=== PATIENT | male | born 1955 | race African-American/Black ===

== ENCOUNTER 2020-05-19 12:47 | Emergency (ER) | payer OTHER ==
[2020-05-19 13:02] VITALS: BP 130/88; PULSE 94
[2020-05-19] MEDS ORDERED: Ketorolac 60 MG/2 ML SDV IM ONE (13:47)
[2020-05-19] MEDS ORDERED: methylPREDNISolone Sodium Succinate 125 MG/2 ML SDV IM STA (13:47)
--- NOTE | 2020-05-19 13:55 | EDM.PDOC ---
ED HPI GENERAL MEDICAL PROBLEM - General Chief Complaint: General Stated Complaint: SCIATIC/LOWER BACK ISSUES Time Seen by Provider: 05/19/20 13:29 Source of Information: Reports: Patient History Limitations: Reports: No Limitations - History of Present Illness INITIAL COMMENTS - FREE TEXT/NARRATIVE: This patient is a 64 year old male that presents to the ER. Patient reports for 3 months having right lower back pain into buttock with some mild numbness. Denies injury, urinary/bowel incontinence, loss of function. Denies numbness/tingling around rectum to indicate saddle parathesia. Patient reports calling his PCP at [facility] but was instructed to come here to the ER for an MRI per patient. Duration: Other (3 months) Location: Reports: Back, Lower Extremity, Right Quality: Reports: Ache Severity: Mild Improves with: Reports: None Worsens with: Reports: None Associated Symptoms: Denies: Confusion, Chest Pain, Cough, cough w sputum, Diaphoresis, Fever/Chills, Headaches, Loss of Appetite, Malaise, Nausea/Vomiting, Rash, Seizure, Shortness of Breath, Syncope, Weakness Right Lower Back Pain Score (Numeric/FACES): 7 - Related Data Allergies Allergy/AdvReac Type Severity Reaction Status Date / Time No Known Allergies Allergy Verified 05/19/20 12:52 Home Meds: Home Meds Lisinopril 40 mg PO DAILY 01/12/16 [History] Cyclobenzaprine [Flexeril] 10 mg PO TID PRN #15 tab 05/19/20 [Rx] amLODIPine [Norvasc] 10 mg PO DAILY 05/19/20 [History] atorvaSTATin [Lipitor] 40 mg PO BEDTIME 05/19/20 [History] methylPREDNISolone [Medrol Dose Pack] 4 mg PO ASDIRECTED #1 dospk 05/19/20 [Rx] traMADol [Ultram] 50 mg PO Q6H PRN #20 tab 05/19/20 [Rx] Past Medical History HEENT History: Reports: Cataract, Epistaxis Cardiovascular History: Reports: Hypertension Respiratory History: Reports: Bronchitis, Recurrent Neurological History: Reports: Migraines - Past Surgical History Musculoskeletal Surgical History: Reports: Shoulder Surgery Social & Family History - Family History Family Medical History: Noncontributory - Tobacco Use Smoking Status *Q: Current Every Day Smoker Years of Tobacco use: 45 Packs/Tins Daily: 0.5 ED ROS GENERAL - Review of Systems Review Of Systems: See Below Constitutional: Reports: No Symptoms HEENT: Reports: No Symptoms Respiratory: Reports: No Symptoms Cardiovascular: Reports: No Symptoms Endocrine: Reports: No Symptoms GI/Abdominal: Reports: No Symptoms : Reports: No Symptoms. Denies: Incontinence Musculoskeletal: Reports: Back Pain (right lower into buttock) Skin: Reports: No Symptoms Neurological: Reports: Numbness (mild right buttock). Denies: Confusion, Dizziness, Headache, Seizure, Syncope, Tingling, Trouble Speaking, Difficulty Walking, Weakness, Gait Disturbance Psychiatric: Reports: No Symptoms Hematologic/Lymphatic: Reports: No Symptoms Immunologic: Reports: No Symptoms ED EXAM, GENERAL - Physical Exam Exam: See Below Exam Limited By: No Limitations General Appearance: Alert, WD/WN, No Apparent Distress Head: Atraumatic, Normocephalic Neck: Normal Inspection, Supple, Non-Tender, Full Range of Motion Respiratory/Chest: No Respiratory Distress, Lungs Clear, Normal Breath Sounds, No Accessory Muscle Use Cardiovascular: Normal Peripheral Pulses, Regular Rate, Rhythm, No Edema, No Gallop, No JVD, No Murmur, No Rub Peripheral Pulses: 2+: Radial (L), Radial (R), Posterior Tibial (L), Posterior Tibial (R), Dorsalis Pedis (L), Dorsalis Pedis (R) GI/Abdominal: Soft, Non-Tender Back Exam: Normal Inspection, Full Range of Motion, Paraspinal Tenderness (mld right lumbar region/buttock.). No: CVA Tenderness (L), CVA Tenderness (R), Decreased Range of Motion, Muscle Spasm, Vertebral Tenderness Extremities: Normal Inspection, Normal Range of Motion, Non-Tender, No Pedal Edema, Normal Capillary Refill Neurological: Alert, Oriented, Normal Cognition, Normal Gait, No Motor/Sensory Deficits Psychiatric: Normal Affect, Normal Mood Skin Exam: Warm, Dry, Intact, Normal Color, No Rash Course - Vital Signs Last Recorded V/S: Last Vital Signs Temp 98.3 F 05/19/20 12:56 Pulse 94 05/19/20 12:56 Resp 18 05/19/20 12:56 BP 130/88 05/19/20 12:56 Pulse Ox 94 L 05/19/20 12:56 - Orders/Labs/Meds Orders: Active Orders 24 hr Category Date Time Status Lumbar Spine 2 or 3V [CR] Stat Exams 05/19/20 13:06 Taken Meds: Medications Discontinued Medications Generic Name Dose Route Start Last Admin Trade Name Suni PRN Reason Stop Dose Admin Ketorolac Tromethamine 60 mg 05/19/20 13:47 05/19/20 13:55 Toradol IM 05/19/20 13:48 60 mg ONETIME ONE Administration Methylprednisolone Sodium Succinate 125 mg 05/19/20 13:47 05/19/20 13:58 Solu-Medrol IM 05/19/20 13:48 125 mg NOW STA Administration - Radiology Interpretation Free Text/Narrative:: Lumbar: no fracture Departure - Departure Time of Disposition: 13:48 Disposition: Home, Self-Care 01 Condition: Good Clinical Impression: Sciatica Qualifiers: Laterality: right Qualified Code(s): M54.31 - Sciatica, right side - Discharge Information *PRESCRIPTION DRUG MONITORING PROGRAM REVIEWED*: Not Applicable *COPY OF PRESCRIPTION DRUG MONITORING REPORT IN PATIENT BYRON: Not Applicable Prescriptions: Cyclobenzaprine [Flexeril] 10 mg PO TID PRN #15 tab PRN Reason: Spasms methylPREDNISolone [Medrol Dose Pack] 4 mg PO ASDIRECTED #1 dospk traMADol [Ultram] 50 mg PO Q6H PRN #20 tab PRN Reason: Pain Instructions: Sciatica, [id number] Forms: ED Department Discharge Additional Instructions: Followup with primary care provider Followup with primary care provider if pain continues for possible MRI or further evaluation Return to the ER for worsening of condition or any emergent concerns Ice or Heat to painful area Tylenol or Motrin for pain Medrol Dose Pack as directed #1 no refill Ultram 50mg 1-2 pills every 4-6 hours as needed for pain #20 no refill Sepsis Event Note (ED) - Evaluation Sepsis Screening Result: No Definite Risk - Focused Exam Vital Signs: Vital Signs Temp Pulse Resp BP Pulse Ox 05/19/20 12:56 98.3 F 94 18 130/88 94 L - Assessment/Plan Plan: PLEASE SEE RN NOTE FOR PFSH
== END 2020-05-19 14:05 | disposition home or self-care (01) ==
LOC: CC.ED 12:47
DX: M54.41 Lumbago with sciatica, right side (principal); I10 Essential (primary) hypertension; F17.210 Nicotine dependence, cigarettes, uncomplicated; Z79.899 Other long term (current) drug therapy
CPT/HCPCS: 72100; 96372; 99283; J1885; J2930

== ENCOUNTER 2020-08-19 17:36 | Emergency (ER) | payer OTHER ==
[2020-08-19 17:42] VITALS: BP 149/91; PULSE 91
[2020-08-19] MEDS ORDERED: Ketorolac 60 MG/2 ML SDV IM ONE (17:57)
[2020-08-19] MEDS ORDERED: Iopamidol 755 Mg/ML 100 ML Bottle IVPUSH ONE (18:28)
[2020-08-19 18:44] LABS: CHLORIDE,CL 105 mEq/L (98-106); SODIUM,NA 140 mEq/L (136-145)
--- NOTE | 2020-08-19 18:45 | EDM.PDOC ---
ED HPI GENERAL MEDICAL PROBLEM - General Chief Complaint: ENT Problem Stated Complaint: tooth ache Time Seen by Provider: 08/19/20 18:13 Source of Information: Reports: Patient History Limitations: Reports: No Limitations - History of Present Illness INITIAL COMMENTS - FREE TEXT/NARRATIVE: Karel is a 65 yo male who presents to the ED with complaints of a toothache. States for the last couple of weeks he has had some discomfort to the left lower tooth. States he did try to get into a dentist but they wanted $500 up front. Admits he also is regularly seen at the [facility] which he has reached out to as well. Denies any fevers. States today the pain has progressively gotten worse. States the pain starts in the inside of his left mouth and radiates down into his neck. States he also felt it up into his left eye area as well. Unable to chew anything on the left side. Left Tooth/Teeth Pain Score (Numeric/FACES): 10 - Related Data Allergies Allergy/AdvReac Type Severity Reaction Status Date / Time No Known Allergies Allergy Verified 08/19/20 17:44 Home Meds: Home Meds Lisinopril 40 mg PO DAILY 01/12/16 [History] amLODIPine [Norvasc] 10 mg PO DAILY 05/19/20 [History] atorvaSTATin [Lipitor] 40 mg PO DAILY 05/19/20 [History] Past Medical History HEENT History: Reports: Cataract, Epistaxis Cardiovascular History: Reports: Hypertension Respiratory History: Reports: Bronchitis, Recurrent Neurological History: Reports: Migraines - Past Surgical History Musculoskeletal Surgical History: Reports: Shoulder Surgery Social & Family History - Family History Family Medical History: No Pertinent Family History - Tobacco Use Tobacco Use Status *Q: Current Every Day Tobacco User Years of Tobacco use: 40 Packs/Tins Daily: 0.5 - Caffeine Use Caffeine Use: Reports: Coffee, Soda - Recreational Drug Use Recreational Drug Use: No ED ROS ENT - Review of Systems Review Of Systems: Comprehensive ROS is negative, except as noted in HPI. ED EXAM, ENT - Physical Exam Exam: See Below Exam Limited By: No Limitations General Appearance: Alert, No Apparent Distress Eye Exam: Bilateral Eye: Normal Inspection, PERRL Ears: Normal External Exam, Normal Canal, Hearing Grossly Normal, Normal TMs Nose: Normal Inspection, Normal Mucousa Mouth/Throat: Dental Abcess, Dental Pain, Dental Tenderness. No: Bleeding, Dental Trauma Head: Facial Swelling (left jaw line) Neck: Normal Inspection, Tender Lateral (left). No: Lymphadenopathy (L) Respiratory/Chest: No Respiratory Distress, Lungs Clear Cardiovascular: Regular Rate, Rhythm, No Murmur Neurological: Alert, Oriented, Normal Cognition, No Motor/Sensory Deficits Course - Vital Signs Last Recorded V/S: Last Vital Signs Temp 96.6 F L 08/19/20 17:39 Pulse 91 08/19/20 17:39 Resp 20 08/19/20 17:39 BP 149/91 H 08/19/20 17:39 Pulse Ox 97 08/19/20 17:39 - Orders/Labs/Meds Orders: Active Orders 24 hr Category Date Time Status Max Facial Sinus w Cont [CT] Stat Exams 08/19/20 18:23 Taken Labs: Laboratory Tests 08/19/20 08/19/20 Range/Units 18:35 18:35 WBC 6.6 (5.0-10.0) 10^3/uL RBC 4.94 (4.50-6.00) 10^6/uL Hgb 14.5 (14.0-18.0) g/dL Hct 44.2 (40.0-54.0) % MCV 89.5 (82.0-94.0) fL MCH 29.4 (27.0-32.0) pg MCHC 32.8 L (33.0-38.0) g/dL RDW Coeff of Sally 14.3 (11.0-15.0) % Plt Count 145 L (150-400) 10^3/uL Neut % (Auto) 66.0 (35-85) % Lymph % (Auto) 24.1 (10-55) % [place] % (Auto) 7.3 (0-16) % Eos % (Auto) 2.3 (0-5) % Baso % (Auto) 0.3 (0-3) % Neut # (Auto) 4.32 (1.80-7.00) 10^3/uL Lymph # (Auto) 1.58 (1.00-4.80) 10^3/uL [place] # (Auto) 0.48 (0.00-0.80) 10^3/uL Eos # (Auto) 0.15 (0.00-0.45) 10^3/uL Baso # (Auto) 0.02 10^3/uL Sodium 140 (136-145) mEq/L Potassium 3.7 (3.5-5.0) mEq/L Chloride 105 (98-106) mEq/L Carbon Dioxide 26 (21-32) mmol/L BUN 20 H (7-18) mg/dL Creatinine 1.4 H (0.7-1.3) mg/dL Est Cr Clr Drug Dosing 48.53 mL/min Estimated GFR (MDRD) > 60 (>=60) mL/min Glucose 145 H (75-99) mg/dL Calcium 9.4 (8.4-10.1) mg/dL Meds: Medications Discontinued Medications Generic Name Dose Route Start Last Admin Trade Name Freq PRN Reason Stop Dose Admin Iopamidol 100 ml 08/19/20 18:28 08/19/20 18:56 Isovue-370 (76%) IVPUSH 08/19/20 18:29 100 ml ONETIME ONE Administration Ketorolac Tromethamine 60 mg 08/19/20 17:57 08/19/20 18:03 Toradol IM 08/19/20 17:58 60 mg ONETIME ONE Administration - Radiology Interpretation Free Text/Narrative:: Dr. Mendez, radiologist, consulted. No soft tissue abscess noted. Did not extensive dental caries. CT Results Date: 08/19/20 CT Results Time: 19:18 Departure - Departure Time of Disposition: 19:21 Disposition: Home, Self-Care 01 Clinical Impression: Dental caries extending into dentin - Discharge Information Referrals: PCP,None [Primary Care Provider] - Forms: ED Department Discharge Additional Instructions: 1) Tylenol 1000mg every 6 hours as needed for pain 2) Toradol 10mg every 8 hours as needed, advise using only for break thru pain 3) Amoxicillin 875mg twice a day for 10 days 4) Discussed kidney function and getting IV contrast tonight. Recommend di scussing with Dr. Samantha Andrew about delaying CT of the chest tomorrow as may be ordered with IV contrast. 5) Advise pushing fluids to help flush the kidneys. 6) If any fevers, worsening of symptoms or any concerns, recommend reevaluation 7) Advise getting in to dentist for proper treatment. Sepsis Event Note (ED) - Evaluation Sepsis Screening Result: No Definite Risk - Focused Exam Vital Signs: Vital Signs Temp Pulse Resp BP Pulse Ox 08/19/20 17:39 96.6 F L 91 20 149/91 H 97 - Problem List & Annotations (1) Dental caries extending into dentin Status: Acute Current Visit: Yes - My Orders Last 24 Hours: My Active Orders 08/19/20 18:23 Max Facial Sinus w Cont [CT] Stat - Assessment/Plan Last 24 Hours: My Active Orders 08/19/20 18:23 Max Facial Sinus w Cont [CT] Stat Plan: CT of the face was negative for soft tissue abscess. Will discharge home on oral antibiotics. Toradol for break thru pain. [facility] in [facility] to [facility] of the chest to confirm Dr. Andrew would like to proceed since IV contrast was given today. Patient is advised to increase fluid intake.
[2020-08-19] MEDS ORDERED: Ketorolac 10 MG Tab ONE (19:15)
[2020-08-19] MEDS ORDERED: Amoxicillin/Clavulanate K 875-125 MG Tab ONE (19:15)
[2020-08-19] MEDS ORDERED: Take Home: Amoxicillin/Clavulanate K 875-125 MG Tab, 2 Tab Pack PO ONE (19:26)
[2020-08-19] MEDS ORDERED: Take Home: Ketorolac 10 MG Tab, 4 Tab Pack PO ONE (19:27)
== END 2020-08-19 20:05 | disposition home or self-care (01) ==
LOC: CC.ED 17:36
DX: K02.9 Dental caries, unspecified (principal); I10 Essential (primary) hypertension; F17.210 Nicotine dependence, cigarettes, uncomplicated; Z79.899 Other long term (current) drug therapy
CPT/HCPCS: 36415; 70487; 80048; 85025; 96372; 99283; 99284; A9270; J1885; Q9967

== ENCOUNTER 2020-10-04 19:04 | Emergency (ER) | payer OTHER ==
[2020-10-04 19:17] VITALS: PULSE 96
[2020-10-04 19:32] VITALS: BP 184/98
[2020-10-04] MEDS ORDERED: Clindamycin HCl 150 MG Cap ONE (19:36)
[2020-10-04] MEDS ORDERED: Acetaminophen/HYDROcodone 325-5 MG Tab ONE (19:36)
[2020-10-04] MEDS ORDERED: diphenhydrAMINE 12.5 MG/5 ML Liquid 5 ML UD Cup PO STA (19:45)
[2020-10-04] MEDS ORDERED: Lidocaine 2% Viscous Solution 15 ML Cup PO ONE (19:45)
[2020-10-04] MEDS ORDERED: Aluminum Hydroxide/Magnesium Hydroxide/Simethicone Susp 30 ML Cup PO ONE (19:45)
[2020-10-04] MEDS ORDERED: Take Home: Acetaminophen/HYDROcodone 325-5 MG, 2 Tab Pack PO ONE (19:47)
[2020-10-04] MEDS ORDERED: Take Home: Clindamycin HCl 150 MG Cap, 6 Cap Pack PO ONE ×2 (19:47→19:54)
[2020-10-04] MEDS ORDERED: Clindamycin HCl 150 MG Cap PO ONE (19:48)
--- NOTE | 2020-10-04 19:55 | EDM.PDOC ---
ED HPI GENERAL MEDICAL PROBLEM - General Chief Complaint: General Stated Complaint: toothache Time Seen by Provider: 10/04/20 19:30 Source of Information: Reports: Patient History Limitations: Reports: No Limitations - History of Present Illness INITIAL COMMENTS - FREE TEXT/NARRATIVE: This patient is a 65 year old male that presents to the ER. Patient reports having left lower dental pain for the past couple of months. He reports that he was seen here in August, prescribed PCN. He reports it improved, then came back about 1 1/2 weeks ago. He reports that he was seen at [facility], they gave PCN VK and Tylenol. He reports the pain is worse now. Patient reports having his tooth fixed is $500 and the dentist wants the infection gone prior to pulling tooth. Denies n, v, d, f, swelling, redness of face. Onset Date: 09/24/20 Duration: Getting Worse, Other (Been present for a couple of months, but worse the last 1 1/2 weeks. 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) (abx) Left Tooth/Teeth Pain Score (Numeric/FACES): 10 - Related Data Allergies Allergy/AdvReac Type Severity Reaction Status Date / Time No Known Allergies Allergy Verified 10/04/20 19:05 Home Meds: Home Meds Lisinopril 40 mg PO DAILY 01/12/16 [History] amLODIPine [Norvasc] 10 mg PO DAILY 05/19/20 [History] atorvaSTATin [Lipitor] 40 mg PO DAILY 05/19/20 [History] Acetaminophen [Mapap] 650 mg PO Q6H PRN 10/04/20 [History] Clindamycin HCl 300 mg PO TID 6 Days #18 capsule 10/04/20 [Rx] Penicillin V Potassium 500 mg PO QID 10/04/20 [History] Past Medical History HEENT History: Reports: Cataract, Epistaxis Cardiovascular History: Reports: Hypertension Respiratory History: Reports: Bronchitis, Recurrent Musculoskeletal History: Reports: Back Pain, Chronic Neurological History: Reports: Migraines - Past Surgical History Musculoskeletal Surgical History: Reports: Shoulder Surgery Social & Family History - Family History Family Medical History: No Pertinent Family History - Tobacco Use Tobacco Use Status *Q: Current Every Day Tobacco User Years of Tobacco use: 42 Packs/Tins Daily: 0.5 - Caffeine Use Caffeine Use: Reports: Coffee, Soda ED ROS GENERAL - Review of Systems Review Of Systems: See Below Constitutional: Reports: No Symptoms HEENT: Reports: Dental Pain Respiratory: Reports: No Symptoms Cardiovascular: Reports: No Symptoms Endocrine: Reports: No Symptoms GI/Abdominal: Reports: No Symptoms : Reports: No Symptoms Musculoskeletal: Reports: No Symptoms Skin: Reports: No Symptoms Neurological: Reports: No Symptoms Psychiatric: Reports: No Symptoms Hematologic/Lymphatic: Reports: No Symptoms Immunologic: Reports: No Symptoms ED EXAM, GENERAL - Physical Exam Exam: See Below Exam Limited By: No Limitations General Appearance: Alert, WD/WN, No Apparent Distress Eye Exam: Bilateral Eye: Normal Inspection, PERRL Ears: Normal External Exam, Normal Canal, Hearing Grossly Normal, Normal TMs Ear Exam: Bilateral Ear: Auricle Normal, Canal Normal, TM normal Nose: Normal Inspection, Normal Mucosa, No Blood Throat/Mouth: Normal Inspection, Normal Lips, Normal Gums, Normal Oropharynx, Normal Voice, No Airway Compromise, Other (no trismus. Poor dental decay throughout. #19 painful, tednerness, decayed. #13 also severe decay. No abscess felt. ) Head: Atraumatic, Normocephalic. No: Facial Swelling, Facial Tenderness, Sinus Tenderness Neck: Normal Inspection, Supple, Non-Tender, Full Range of Motion Respiratory/Chest: No Respiratory Distress, Lungs Clear, Normal Breath Sounds, No Accessory Muscle Use Cardiovascular: Normal Peripheral Pulses, Regular Rate, Rhythm, No Edema, No Gallop, No JVD, No Murmur, No Rub Peripheral Pulses: 2+: Radial (L), Radial (R) Extremities: Normal Inspection Neurological: Alert, Oriented Psychiatric: Normal Affect, Normal Mood Skin Exam: Warm, Dry, Intact, Normal Color, No Rash Lymphatic: No Adenopathy Course - Vital Signs Last Recorded V/S: Last Vital Signs Temp 98.6 F 10/04/20 19:04 Pulse 96 10/04/20 19:04 Resp 16 10/04/20 19:04 BP 184/98 H 10/04/20 19:31 Pulse Ox 99 10/04/20 19:04 - Orders/Labs/Meds Meds: Medications Discontinued Medications Generic Name Dose Route Start Last Admin Trade Name Freq PRN Reason Stop Dose Admin Hydrocodone Bitart/Acetaminophen 3 packet 10/04/20 19:47 Take Home: Acetaminophen/Hydrocod, 2 Tab Pack PO 10/04/20 19:48 ONETIME ONE Al Hydroxide/Mg Hydroxide 30 ml 10/04/20 19:45 Mag-Al Plus PO 10/04/20 19:46 ONETIME ONE Clindamycin HCl 3 packet 10/04/20 19:47 Take Home: Clindamycin Hcl 150 Mg, 6 Cap Pack PO 10/04/20 19:48 ONETIME ONE Clindamycin HCl 300 mg 10/04/20 19:48 Cleocin PO 10/04/20 19:49 ONETIME ONE Clindamycin HCl 2 packet 10/04/20 19:54 Take Home: Clindamycin Hcl 150 Mg, 6 Cap Pack PO 10/04/20 19:55 ONETIME ONE Diphenhydramine HCl 25 mg 10/04/20 19:45 Benadryl PO 10/04/20 19:46 NOW STA Lidocaine HCl 15 ml 10/04/20 19:45 Xylocaine 2% Viscous PO 10/04/20 19:46 ONETIME ONE Departure - Departure Time of Disposition: 19:52 Disposition: Home, Self-Care 01 Condition: Fair Clinical Impression: Poor dental hygiene, Dental caries extending into dentin - Discharge Information *PRESCRIPTION DRUG MONITORING PROGRAM REVIEWED*: Not Applicable *COPY OF PRESCRIPTION DRUG MONITORING REPORT IN PATIENT BYRON: Not Applicable Prescriptions: Clindamycin HCl 300 mg PO TID 6 Days #18 capsule Instructions: Dental Abscess, [id number] Referrals: PCP,None [Primary Care Provider] - Forms: ED Department Discharge Additional Instructions: Followup with a dentist to have tooth removed for fixed Followup with your primary care provider Return to the ER for worsening of condition or any emergent concerns Stop the PCN VK Stop the Tylenol Take Motrin as needed for pain over the counter with food Clindamycin 150mg 2 pills three times a day Tuesday: 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
== END 2020-10-04 20:20 | disposition home or self-care (01) ==
LOC: CC.ED 19:04
DX: K02.9 Dental caries, unspecified (principal); I10 Essential (primary) hypertension; F17.210 Nicotine dependence, cigarettes, uncomplicated; Z79.899 Other long term (current) drug therapy
CPT/HCPCS: 99282; 99283; A9270-GY

== ENCOUNTER → 2022-02-05 | Day surgery (SDC) | payer OTHER ==
[~2022-02-05] MED LIST: Flumazenil 0.1 MG/ML 10 ML MDV ONE; Ketamine 200 MG/20 ML MDV ONE; Lactated Ringers 1,000 ML IV SCH; Midazolam 1 MG/ML 2 ML SDV ONE; Propofol 200 MG/20 ML SDV ONE; fentaNYL 100 MCG/2 ML SDV ONE
[2022-02-05 14:42] VITALS: BP 128/81; PULSE 71
== END ==
LOC: CC.SDS 11:51
PROVIDERS: ATTEND Family Medicine
DX: Z12.11 Encounter for screening for malignant neoplasm of colon (principal); D12.3 Benign neoplasm of transverse colon; K57.30 Diverticulosis of large intestine without perforation or abscess without bleeding; I10 Essential (primary) hypertension; F17.210 Nicotine dependence, cigarettes, uncomplicated; G43.909 Migraine, unspecified, not intractable, without status migrainosus; M54.9 Dorsalgia, unspecified; E66.9 Obesity, unspecified; R30.0 Dysuria; Z88.5 Allergy status to narcotic agent; Z79.899 Other long term (current) drug therapy; Z68.38 Body mass index [BMI] 38.0-38.9, adult
CPT/HCPCS: 00812; J2250; J2704; J3010; J7120

== ENCOUNTER 2022-04-12 22:12 | Emergency (ER) | payer OTHER ==
[2022-04-12 22:15] VITALS: BP 141/75; PULSE 100
[2022-04-12] MEDS ORDERED: Tetracaine HCl/PF 0.5% 4 ML Bottle EYELF ONE (22:26)
[2022-04-12] MEDS ORDERED: Fluorescein 1 MG Ophth Strip EYELF ONE (23:17)
[2022-04-12] MEDS ORDERED: Distilled Water Ophth Irrig Soln 120 ML Bottle EYELF ONE (23:17)
== END 2022-04-12 23:05 | disposition home or self-care (01) ==
LOC: SUPCPDRO 22:12 → CC.ED 22:12
DX: H11.002 Unspecified pterygium of left eye (principal); I10 Essential (primary) hypertension; Z79.899 Other long term (current) drug therapy
CPT/HCPCS: 99282

== ENCOUNTER 2022-11-13 01:30 | Emergency (ER) | payer OTHER ==
[2022-11-13 01:35] VITALS: BP 144/88; PULSE 75
[2022-11-13] MEDS ORDERED: Alum Hydrox/Mag Hydrox/Simeth 30 ML, Lidocaine 2% 15 ML PO ONE ×2 (01:41)
[2022-11-13] MEDS ORDERED: Famotidine 20 MG Tab PO ONE (02:39)
== END 2022-11-13 03:00 | disposition home or self-care (01) ==
LOC: CC.ED 01:30
DX: K29.70 Gastritis, unspecified, without bleeding (principal); I10 Essential (primary) hypertension; F17.210 Nicotine dependence, cigarettes, uncomplicated; Z79.899 Other long term (current) drug therapy
CPT/HCPCS: 36415; 80053; 82150; 83690; 84484; 85025; 99283; 99284; A9270-GY

== ENCOUNTER 2023-12-30 10:15 | Emergency (ER) | payer OTHER ==
[2023-12-30 10:37] VITALS: BP 113/68; PULSE 72
[2023-12-30 10:43] LABS: BASOPHILS ABSOLUTE AUTO 0.01 10^3/uL (0.00-0.50); BASOPHILS PERCENT AUTO 0.2 % (0-1); EOSINOPHILS ABSOLUTE AUTO 0.17 10^3/uL (0.00-1.50); EOSINOPHILS PERCENT AUTO 4.2 % (0-6); HEMATOCRIT 41.2 % (42.0-52.0); HEMOGLOBIN 13.1 g/dL (14.0-18.0); IMMATURE GRAN ABSOLUTE AUTO 0.01 10^3/uL (0.00-0.49); IMMATURE GRAN PERCENT AUTO 0.2 % (0.0-4.9); LYMPHOCYTES PERCENT AUTO 17.2 % (24-44); MEAN CORPUSCULAR HEMOGLOBIN 28.7 pg (27.0-32.0); MEAN CORPUSCULAR HGB CONC 31.8 g/dL (32.0-36.0); MEAN CORPUSCULAR VOLUME 90.4 fL (83.0-97.0); MONOCYTES ABSOLUTE AUTO 0.55 10^3/uL (0.00-1.50); MONOCYTES PERCENT AUTO 13.5 % (0-10); NEUTROPHILS ABSOLUTE AUTO 2.62 x10^3/uL (1.80-8.00); NEUTROPHILS PERCENT AUTO 64.7 % (41-71); PLATELET COUNT,PLT 123 10^3/uL (150-400); RED BLOOD CELL COUNT 4.56 x10^6/uL (4.50-6.00); WHITE BLOOD CELL COUNT,WBC 4.1 10^3/uL (4.0-11.0)
[2023-12-30 10:56] LABS: ALBUMIN 3.2 g/dL (3.4-5.0); BILIRUBIN TOTAL 0.4 mg/dL (0.0-1.0); C-REACTIVE PROTEIN 3.21 mg/dL (<=0.50); CALCIUM 8.8 mg/dL (8.4-10.1); CREATININE 1.1 mg/dL (0.7-1.3); EST CRCL DRUG DOSING (CG) 57.19 mL/min; POTASSIUM,K 4.6 mEq/L (3.5-5.0); PROTEIN TOTAL,TP 7.3 g/dL (6.4-8.2)
[2023-12-30] MEDS: Albuterol/Ipratropium 3.0-0.5 MG/3 ML Neb Soln NEB ONE (10:58)
[2023-12-30 11:19] LABS: CORONAVIRUS COVID-19 NAA POSITIVE (NEGATIVE); INFLUENZA A NAA NEGATIVE (NEGATIVE); INFLUENZA B NAA NEGATIVE (NEGATIVE); RESPIRATORY SYNCYTIAL VIR NAA NEGATIVE (NEGATIVE)
== END 2023-12-30 11:32 | disposition home or self-care (01) ==
LOC: CC.ED 10:15
DX: U07.1 COVID-19 (principal); J44.1 Chronic obstructive pulmonary disease with (acute) exacerbation; I10 Essential (primary) hypertension; F17.210 Nicotine dependence, cigarettes, uncomplicated; Z79.899 Other long term (current) drug therapy
CPT/HCPCS: 0241U; 36415; 71046; 80053; 85025; 86140; 94640; 99284; J7620-GY

== ENCOUNTER 2024-11-09 18:04 | Emergency (ER) | payer OTHER ==
[2024-11-09] MEDS ORDERED: Sodium Chloride 0.9% 10 ML Syringe FLUSH PRN (18:13)
[2024-11-09] MEDS: Nitroglycerin 0.4 MG Tab.SL SL PRN (18:21)
[2024-11-09 18:31] LABS: BASOPHILS ABSOLUTE AUTO 0.04 10^3/uL (0.00-0.50); BASOPHILS PERCENT AUTO 0.4 % (0-1); EOSINOPHILS ABSOLUTE AUTO 0.13 10^3/uL (0.00-1.50); EOSINOPHILS PERCENT AUTO 1.2 % (0-6); HEMATOCRIT 44.1 % (42.0-52.0); HEMOGLOBIN 14.2 g/dL (14.0-18.0); IMMATURE GRAN ABSOLUTE AUTO 0.02 10^3/uL (0.00-0.49); IMMATURE GRAN PERCENT AUTO 0.2 % (0.0-4.9); LYMPHOCYTES ABSOLUTE AUTO 1.55 10^3/uL (0.60-5.00); LYMPHOCYTES PERCENT AUTO 14.6 % (24-44); MEAN CORPUSCULAR HEMOGLOBIN 29.1 pg (27.0-32.0); MEAN CORPUSCULAR HGB CONC 32.2 g/dL (32.0-36.0); MEAN CORPUSCULAR VOLUME 90.4 fL (83.0-97.0); MONOCYTES ABSOLUTE AUTO 0.71 10^3/uL (0.00-1.50); MONOCYTES PERCENT AUTO 6.7 % (0-10); NEUTROPHILS ABSOLUTE AUTO 8.16 x10^3/uL (1.80-8.00); NEUTROPHILS PERCENT AUTO 76.9 % (41-71); PLATELET COUNT,PLT 162 10^3/uL (150-400); RED BLOOD CELL COUNT 4.88 x10^6/uL (4.50-6.00); WHITE BLOOD CELL COUNT,WBC 10.6 10^3/uL (4.0-11.0)
[2024-11-09] MEDS: Alum Hydrox/Mag Hydrox/Simeth 30 ML, Lidocaine 2% 15 ML PO ONE (18:32)
[2024-11-09 18:47] LABS: ALANINE AMINOTRANSFERASE,ALT 27 U/L (12-78); ALBUMIN 3.7 g/dL (3.4-5.0); ALKALINE PHOSPHATASE 69 U/L (46-116); ASPARTATE AMNIOTRANSFERASE,AST 15 U/L (15-37); BILIRUBIN TOTAL 0.5 mg/dL (0.0-1.0); BLOOD UREA NITROGEN,BUN 22 mg/dL (7-18); CALCIUM 9.8 mg/dL (8.4-10.1); CARBON DIOXIDE,CO2 26 mmol/L (21-32); CHLORIDE,CL 107 mEq/L (98-106); CREATININE 1.5 mg/dL (0.7-1.3); GLUCOSE RANDOM 159 mg/dL (75-99); MAGNESIUM 1.8 mg/dL (1.8-2.4); POTASSIUM,K 4.1 mEq/L (3.5-5.0); PROTEIN TOTAL,TP 7.3 g/dL (6.4-8.2); SODIUM,NA 142 mEq/L (136-145)
[2024-11-09 18:48] LABS: C-REACTIVE PROTEIN < 0.50 mg/dL (<=0.50); ESTIMATED GFR 50 mL/min (>=60)
[2024-11-09 18:58] LABS: D-DIMER QUANTITATIVE 0.71 (0.00-0.50); INR 1.08 (0.92-1.18); PROTHROMBIN TIME 11.3 SEC (9.3-11.3); PTT,PARTIAL THROMBOPLSTIN TIME 22.7 SEC (20.0-30.0)
[2024-11-09] MEDS: Morphine 2 MG/ML SYRINGE IVPUSH STA (19:01)
[2024-11-09] MEDS: Morphine 2 MG/ML SYRINGE SUBCUT STA (19:01)
[2024-11-09] MEDS: Sodium Chloride 0.9% 1,000 ML IV ONE (19:03)
[2024-11-09] MEDS: fentaNYL 50 MCG/ML SDV IVPUSH ONE (19:36)
[2024-11-09] MEDS: Iopamidol 755 Mg/ML 100 ML Bottle IVPUSH ONE (19:55)
[2024-11-09] MEDS: HYDROmorphone 0.5 MG/0.5 ML Syringe IVPUSH ONE (20:44)
[2024-11-09] MEDS: Heparin Sodium 5,000 Units/ML Vial IVPUSH ONE (21:33)
[2024-11-09] MEDS: Heparin Sodium/0.45% NaCl 500 ML IV SCH (21:33)
[2024-11-09] MEDS: Morphine 2 MG/ML SYRINGE IVPUSH PRN (22:20)
[2024-11-09] MEDS: Nitroglycerin 2% Oint 1 GM UD Packet TOP ONE (22:28)
[2024-11-09] MEDS: Ondansetron 4 MG/2 ML SDV IVPUSH PRN (23:45)
[2024-11-09] MEDS: HYDROmorphone 0.5 MG/0.5 ML Syringe IVPUSH PRN (23:46)
[2024-11-10 00:15] VITALS: PULSE 70
[2024-11-10 01:54] VITALS: BP 128/76
== END 2024-11-10 02:00 ==
LOC: CC.ED 18:04
DX: I21.4 Non-ST elevation (NSTEMI) myocardial infarction (principal); I10 Essential (primary) hypertension; Z79.899 Other long term (current) drug therapy
CPT/HCPCS: 36415; 71045; 71275; 74177; 80053; 83690; 83735; 84484; 85025; 85379; 85610; 85730; 86140; 87428-QW; 93005; 96361; 96365; 96366; 96375; 96376; 99285-25; A9270-GY; J1644; J2270; J2405; J3010; J7030; Q9967